=== PATIENT | male | born 1975 | race Caucasian/White ===

== ENCOUNTER 2024-12-24 11:43 | Day surgery (SDC) | payer OTHER ==
[~2024-12-24 11:43] MED LIST: ACETAMINOPHEN325 M1 PO; ADVIL200 MG PO; HYDROCODON-ACE1 EA11 PO; IBLOOD GLUCOSE TEST STRIP 1 EA TEST VI PRN; LACTATED RINGER'S 1,000 ML IV SCH; LIDOCAINE HCL 1% 5 ML SDV INJ ONE; MIDAZOLAM HCL 5 MG/5 ML VIAL IV PRN; fentaNYL citrate 100 MCG/2 ML VIAL IV PRN
[2024-12-24 12:13] VITALS: BP 140/94
[2024-12-24] MEDS ORDERED: MIDAZOLAM HCL 5 MG/5 ML VIAL ONE (12:45)
[2024-12-24] MEDS ORDERED: fentaNYL citrate 100 MCG/2 ML VIAL ONE (12:45)
--- NOTE | 2024-12-24 14:06 | NUR ---
12/24/24 1406 Migdalia Robert 1351- PT PRESENTS TO PACU, LEFT LATERAL POSITION, AWAKE BUT DROWSY. DENIES PAIN OR NAUSEA, ABD SOFT, NON DISTENDED, ENCOURAGED TO PASS GAS. LR INFUSING TO RW. BREATHING EVEN AND NON LABORED, O2 AT 3L PER NC. ALL MONITORS IN PLACE. 1353- PT MOVED TO ROOM AIR. RESTING INTERMITTENTLY. 1400- PT ROLLED TO BACK INDEPENDENTLY, SAT UP IN BED. DENIES PAIN OR NAUSEA. 1402- DR RAYMOND AT BEDSIDE, ICE WATER PROVIDED TOLERATING WELL.
[2024-12-24 14:44] VITALS: BP 135/94
--- NOTE | 2024-12-25 11:56 | OR ---
[facility] [address], [place] [address] Signed DATE OF OPERATION: 12/24/2024 SURGEON: Abel Raymond MD PREOPERATIVE DIAGNOSIS: Colon screening. POSTOPERATIVE DIAGNOSIS: Diminutive polyp of rectum (excised). PROCEDURE: Total colonoscopy to cecum with cold morcellation polypectomy x1. ANESTHESIA: Intravenous sedation, fentanyl 100 mcg and Versed 8 mg. INDICATION: 49-year-old white man, a patient of SUN Ware, is referred for screening colonoscopy. Has no symptoms of bleeding, diarrhea or constipation and no family history of colon cancer. He additionally does have a left inguinal and scrotal hydrocele, for which excision has been offered. He understands the risks of colonoscopy including but not limited to bleeding, infection, and perforation and wished to proceed. FINDINGS: The prep was excellent. Complete colonoscopy was undertaken of the cecum with full intubation of the cecum. He had a very diminutive polyp of the rectum, which was excised completely. The remaining colon was normal. PROCEDURE IN DETAIL: The patient was brought to the endoscopy suite and placed in lateral decubitus position, given intravenous sedation to the point of slurred speech and nystagmus. Digital rectal examination was normal. An Olympus video colonoscope was passed in the rectum and manipulated throughout the colon, ultimately intubating the cecum itself. The ileocecal valve and appendiceal orifice were normal. Scope was withdrawn from that point, and examination throughout showed no sign of abnormality until the rectum where a small polyp was noted, this was excised with cold morcellation technique. Retroflexed view was otherwise normal. Scope was removed, and the patient has recovered, taken to the recovery room in good condition. Electronically Signed By: ABEL RAYMOND MD 12/25/24 1156 PATIENT NAME: MARY JO KING OPERATIVE REPORT DATE OF : 71 REPORT #: [id number] PHYSICIAN: ABEL RAYMOND MD PCP: KEZIA BARRETT PAC REPORT IS CONFIDENTIAL AND NOT TO BE RELEASED WITHOUT AUTHORIZATION [facility] [address], [place] [address] Signed CONCLUDING DIAGNOSIS: Diminutive polyp of rectum. PLAN: Recommend repeat colonoscopy in 10 years, sooner if symptoms should develop. MD QUETA Bland/MODL /[id number] cc: Kezia Barrett PA-C Copies: ~ Electronically Signed By: ABEL RAYMOND MD 12/25/24 1156 PATIENT NAME: MARY JO KING OPERATIVE REPORT DATE OF : 71 REPORT #: [id number] PHYSICIAN: ABEL RAYMOND MD PCP: KEZIA BARRETT PAC REPORT IS CONFIDENTIAL AND NOT TO BE RELEASED WITHOUT AUTHORIZATION
--- NOTE | 2024-12-27 11:51 | PATH ---
[facility] [address] [place], [place] [address] Signed SPECIMEN(S): A RECTAL POLYP SPECIMEN SOURCE: A. RECTAL POLYP CLINICAL HISTORY: Colon screening FINAL PATHOLOGIC DIAGNOSIS: Colon, rectal polyp, biopsy: - Hyperplastic polyp. - Negative for dysplasia and malignancy. SDL MICROSCOPIC EXAMINATION: Histologic sections of all submitted blocks are examined by light microscopy. These findings, together with the gross examination, support the pathologic diagnosis. GROSS DESCRIPTION: The specimen, labeled and designated "Diallo, rectal polyp," is received in formalin and consists of one owens soft tissue fragment, 0.2 cm. Entirely submitted in (A1). VB (under the direct supervision of a pathologist) The Gross Description was prepared using a voice recognition system. The report was reviewed for accuracy; however, sound-alike word errors, addition and/or deletions may occur. If there are any questions about this report, please contact Client Services. ADDITIONAL NOTES: Immunohistochemical and/or in situ hybridization studies if performed in this case included appropriate positive controls that reacted as expected. This test was developed and its performance characteristics determined by [facility]. It has not been cleared or approved by the U.S. Food and Drug Administration. The FDA has determined that such clearance or approval is not necessary. This test is used for clinical purposes. It should not be regarded as investigational or for research. [facility] is certified under the Clinical Laboratory Improvement Amendments of 1988 (CLIA) as qualified to perform high complexity clinical laboratory testing. PATIENT NAME: MARY JO KING PATHOLOGY DATE OF : 71 REPORT #: [id number] PHYSICIAN: SHRUTI LINARES PCP: KEZIA BARRETT PAC REPORT IS CONFIDENTIAL AND NOT TO BE RELEASED WITHOUT AUTHORIZATION [address] [address] Signed PERFORMING LABORATORY: Technical component was performed by [facility], [address] [place] [id number] (CLIA# [id number]). Professional interpretation was performed by [facility], [address] [place] [id number] (CLIA#: [id number]). Diagnostician: Janessa Holden MD Pathologist Electronically Signed 12/27/2024 Copies: ~ PATIENT NAME: MARY JO KING PATHOLOGY DATE OF : 71 REPORT #: [id number] PHYSICIAN: SHRUTI LINARES PCP: KEZIA BARRETT PAC REPORT IS CONFIDENTIAL AND NOT TO BE RELEASED WITHOUT AUTHORIZATION
== END 2024-12-24 14:23 | disposition home or self-care (01) ==
LOC: DS 11:43 → OPS 11:43 → DS 13:00 → OPS 14:23
PROVIDERS: ATTEND Surgery
PROC: 0DBP8ZX Excision of Rectum, Via Natural or Artificial Opening Endoscopic, Diagnostic (ICD-10-PCS; principal; 2024-12-24 13:00)
DX: Z12.11 Encounter for screening for malignant neoplasm of colon (principal); K62.1 Rectal polyp; N43.3 Hydrocele, unspecified
CPT/HCPCS: 99153; G0500; J2250; J3010

== ENCOUNTER 2025-01-29 05:55 | Day surgery (SDC) | payer OTHER ==
[~2025-01-29] VITALS: Ht 190.5 cm; Wt 105.0 kg
[~2025-01-29 05:55] MED LIST changes: -IBLOOD GLUCOSE TEST STRIP 1 EA TEST VI PRN; -LIDOCAINE HCL 1% 5 ML SDV INJ ONE; -MIDAZOLAM HCL 5 MG/5 ML VIAL IV PRN; -fentaNYL citrate 100 MCG/2 ML VIAL IV PRN
[2025-01-29 06:07] VITALS: BP 144/94
[2025-01-29] MEDS ORDERED: CEFAZOLIN SODIUM 2 GM/20 ML SYR IV SCH (07:00)
[2025-01-29] MEDS ORDERED: LIDOCAINE HCL 1% 5 ML SDV INJ ONE (07:00)
[2025-01-29] MEDS ORDERED: HEParin SOD (PORCINE) 5,000 UNIT/ML SDV SUB-Q SCH (07:00)
[2025-01-29] MEDS ORDERED: IBLOOD GLUCOSE TEST STRIP 1 EA TEST VI PRN ×2 (07:00→08:15)
[2025-01-29] MEDS ORDERED: fentaNYL citrate 100 MCG/2 ML VIAL ONE (07:32)
[2025-01-29] MEDS ORDERED: KETOROLAC TROMETHAMINE 30 MG/ML VIAL ONE (07:33)
[2025-01-29] MEDS ORDERED: LIDOCAINE HCL 2% 5 ML SDV ONE (07:33)
[2025-01-29] MEDS ORDERED: DEXAMETHASONE SOD PHOS 4 MG/ML VIAL ONE (07:33)
[2025-01-29] MEDS ORDERED: ACETAMINOPHEN 1,000 MG/100 ML VIAL ONE (07:33)
[2025-01-29] MEDS ORDERED: fentaNYL citrate 50 MCG/ML SDV IV PRN (08:15)
[2025-01-29] MEDS ORDERED: NALOXONE HCL 0.4 MG SYR IV PRN ×2 (08:15→09:15)
--- NOTE | 2025-01-29 09:05 | NUR ---
01/29/25 0905 Catalina Correa 1574 PT ARRIVED TO PACU ON RA, PT WAKES EASILY AND REPORTS NO PAIN OR NAUSEA. PT RESTING AND WAKES OFF AND ON. 0900 PT REPORTS 3/10 TOLERABLE PAIN, PLAN OF CARE DISCSUSED.
[2025-01-29] MEDS ORDERED: OXYCODON-ACETA1 EAC2 PO (09:14)
[2025-01-29] MEDS ORDERED: IBUPROFEN600 MG PO (09:14)
[2025-01-29] MEDS ORDERED: LACTATED RINGER'S 1,000 ML IV SCH (09:15)
[2025-01-29] MEDS ORDERED: OXYCODONE/APAP 7.5/325 TAB PO PRN (09:15)
[2025-01-29] MEDS ORDERED: ACETAMINOPHEN500 MG PO (09:15)
[2025-01-29] MEDS ORDERED: ACETAMINOPHEN 500 MG TAB PO PRN (09:15)
[2025-01-29] MEDS ORDERED: IBUPROFEN 600 MG TAB PO PRN (09:15)
[2025-01-29 09:20] VITALS: BP 140/92
--- NOTE | 2025-01-29 09:20 | NUR ---
PT BACK TO DS FROM PACU VIA STRETCHER. PT IS A&O AND ASKING APPROPRIATE QUESTIONS AT THIS TIME. PT REPORTS PAIN HAS INCREASED TO 7 OR 8/10, WHICH IS NOT TOLERABLE, PRN PAIN MED GIVEN AFTER PT ATE A FEW CRACKERS. REPORT RECEIVED FROM BJORN DELA CRUZ W/ AT BEDSIDE. , PT, PILI RN, AND BJORN DELA CRUZ VISUALIZED WOUND DRESSING. PT REPORTS NO FURTHER QUESTIONS OR NEEDS AT THIS TIME, CALL LIGHT WITHIN REACH.
--- NOTE | 2025-01-29 10:12 | NUR ---
IN PT ROOM FOR PAIN ASSESSMENT. PT STATES PAIN HAS IMPROVED TO 3/10 AND TOLERABLE AT THIS TIME. COFFEE PROVIDED. URINAL PROVIDED. PT STATES NO FURTHER QUESTIONS OR NEEDS AT THIS TIME. PT TO PHARMACY TO DROP OFF PRESCRIPTION. CALL LIGHT WITHIN REACH.
[2025-01-29 10:43] VITALS: BP 140/89
--- NOTE | 2025-01-29 10:45 | NUR ---
IN PT ROOM FOR ASSESSMENT AND VS. PT REPORTS PAIN REMAINS TOLERABLE AT 3/10 AND NO FURTHER NEEDS AT THIS TIME. ICE WATER PROVIDED. PT STATES VERBAL UNDERSTANDING THAT MUST URINATE BEFORE DC. PT DRINKING WATER AND COFFEE. CALL LIGHT WITHIN REACH, PT AT BEDSIDE.
--- NOTE | 2025-01-29 10:57 | NUR ---
ANSWERED PT CALL LIGHT, PT URINE VOID IN URINAL 700 ML CLEAR/YELLOW URINE. PT STATES HE IS READY TO GO HOME, PT IN ROOM TO ASSIST WITH GETTING DRESSED. CALL LIGHT WITHIN REACH.
--- NOTE | 2025-01-29 11:33 | OR ---
[facility] [address] [place], [place] [address] Signed DATE OF OPERATION: 01/29/2025 SURGEON: Abel Raymond MD PREOPERATIVE DIAGNOSIS: Symptomatic left 8.6 cm scrotal hydrocele. POSTOPERATIVE DIAGNOSIS: Symptomatic left 8.6 cm scrotal hydrocele (testicular origin). PROCEDURE: Left trans-inguinal approach, excision of hydrocele of testis. ANESTHESIA: General LMA, Virgilio Mtz, SAP BASIS ARCHITECT and local 10 mL of 0.25% Marcaine with epinephrine. INDICATION: This 49-year-old white man is a patient of Kezia Barrett and was referred with colonoscopy as well as left hemiscrotal mass. The patient had noted a small mass in the left hemiscrotum approximately 10 years ago, which has increased in size over time. It is occasionally particularly painful. This is particularly true with tight closing or squatting or other similar activities. He underwent an ultrasound of the left hemiscrotum and right side as well on November 29, 2024. The right testicle and right hemiscrotum were essentially normal. On the left side, the testicle was 5.2 cm in maximum dimension. The left epididymis was normal, but a cyst was noted superior to the testicle in the area of the cord. Septations were present within the cyst which measured 8.6 cm in maximum dimension. Septations were noted on the left side. There was a 3.7 cm cyst of the right hemiscrotum. There is no solid mass in the testicle or epididymis. Given his symptoms and so forth I have recommended excision. The transscrotal versus trans-inguinal approach has been reviewed with him. The patient understands the risk of the operation including but not limited to bleeding, infection, recurrence, and other unforeseen complications. Understanding this, he wished to proceed. FINDINGS: Delivery of the hydrocele and testicle through the left inguinal approach provided excellent exposure and a transscrotal incision was not required. The hydrocele was densely adherent to the superior pole of the left testicle adjacent but not involving particularly the epidemic epididymis itself. Meticulous care was made in excising the cyst in its entirety from the surrounding soft tissue. Excellent hemostasis was Electronically Signed By: ABEL RAYMOND MD 01/29/25 1133 PATIENT NAME: MARY JO KING OPERATIVE REPORT DATE OF : 71 REPORT #: [id number] PHYSICIAN: ABEL RAYMOND MD PCP: KEZIA BARRETT PAC REPORT IS CONFIDENTIAL AND NOT TO BE RELEASED WITHOUT AUTHORIZATION [facility] [address] [place] [address] Signed maintained. He tolerated the procedure well. DESCRIPTION OF PROCEDURE: The patient was brought to the operating room, given a general LMA type anesthetic. Preoperative antibiotic Ancef was given. Sequential compression device stockings were used. The lower abdomen was clipped and prepared with a Betadine based scrub solution including all of the scrotum. After sterile draping and manipulation of the left hemiscrotum, showed the hydrocele to be larger, not excessively so a transscrotal approach was deemed likely more morbid and therefore a trans-inguinal approach deemed more advisable. A small incision made cephalad to the left pubic tubercle with a 15 blade. Dissection was carried through the subcutaneous tissue with electrocautery. Further dissection down to the external oblique area allowed for various maneuvers to identify a cord structures. He had a rather hypervascular cord from a venous perspective somewhat like, but not entirely a true varicocele. With various manipulations, the cord was encircled, ultimately encircled with a [place] drain as well. With various manipulations, the left hemiscrotal contents were invaginated out of the inguinal incision, delivering the bulky hydrocele into the field of view. A venous vascular network surrounding the area was noted and the membrane beneath it incised allowing for blunt separation of cord venous structures away from the hydrocele itself. Photographs were taken. Meticulous care was made in dissecting free the hydrocele from the cord structures, opening the deep spermatic fascia and identifying the testicle itself and the epididymis. It appeared to be insinuated between the two and the origin of the testicle itself. With various maneuvers, the intact cyst was freed from the surrounding soft tissue. A small leak was noted decreasing the size of the hydrocele of course but maintaining good integrity of the hydrocele membrane itself ultimately fully excising it free from the testicle. Small areas of punctate bleeding were secured with electrocautery. The cord itself had been fully open essentially preserving all vital structures. A small amount of Marika hemostatic agent was applied to the area after hemostasis was assured clinically. The testicle delivered back into the scrotal area. Examination of the cord structure more proximally undertaken. Once hemostasis was assured additional hemostatic agent Marika was applied. Irrigation was undertaken on multiple occasions to be certain of hemostasis. Mateo's layer was reapproximated with interrupted 2-0 Vicryl and skin was closed with running subcuticular 3-0 Vicryl. Steri-Strips were applied as was an Acticoat dressing. Blood loss was quite minimal. Sponge, needle, and instrument counts reported as correct x3. Abel Raymond MD Electronically Signed By: ABEL RAYMOND MD 01/29/25 1133 PATIENT NAME: MARY JO KING OPERATIVE REPORT DATE OF : 71 REPORT #: [id number] PHYSICIAN: ABEL RAYMOND MD PCP: KEZIA BARRETT PAC REPORT IS CONFIDENTIAL AND NOT TO BE RELEASED WITHOUT AUTHORIZATION [address] [place], [place] [address] Signed /HERNAN /[id number] cc: Kezia Barrett PA-C Copies: ~ Electronically Signed By: ABEL RAYMOND MD 01/29/25 1133 PATIENT NAME: MARY JO KING OPERATIVE REPORT DATE OF : 71 REPORT #: [id number] PHYSICIAN: ABEL RAYMOND MD PCP: KEZIA BARRETT PAC REPORT IS CONFIDENTIAL AND NOT TO BE RELEASED WITHOUT AUTHORIZATION
[2025-01-29] MEDS ORDERED: SEVOFLURANE 250 ML BTL INH ONE (14:43)
--- NOTE | 2025-01-31 16:10 | PATH ---
[facility] [address] [facility] [place], [place] [address] Signed SPECIMEN(S): A LEFT TESTICULAR HYDROCELE SPECIMEN SOURCE: A. LEFT TESTICULAR HYDROCELE CLINICAL HISTORY: Left hydrocele. FINAL PATHOLOGIC DIAGNOSIS: Soft tissue from left paratesticular area: - Benign cystic tissue consistent with hydrocele. - No abscess, granuloma, or neoplasm identified. [facility] MICROSCOPIC EXAMINATION: Histologic sections of all submitted blocks are examined by light microscopy. These findings, together with the gross examination, support the pathologic diagnosis. GROSS DESCRIPTION: The specimen, labeled and designated "Quinn Landrum, " and designated on the requisition "left testicular hydrocele," is received in formalin and consists of 4.5 x 3.2 x 0.4 cm pink-white transparent collapsed cystic structure. The specimen is sectioned and entirely submitted in cassette A1. FB (under the direct supervision of a pathologist) The Gross Description was prepared using a voice recognition system. The report was reviewed for accuracy; however, sound-alike word errors, addition and/or deletions may occur. If there is any question about this report, please contact Client Services. ADDITIONAL NOTES: Immunohistochemical and/or in situ hybridization studies if performed in this case included appropriate positive controls that reacted as expected. This test was developed and its performance characteristics determined by [facility]. It has not been cleared or approved by the U.S. Food and Drug Administration. The FDA has determined that such clearance or approval is not necessary. This test is used for clinical purposes. It should not be regarded as investigational or for research. [facility] is certified under the Clinical Laboratory Improvement PATIENT NAME: MARY JO LANDRUM PATHOLOGY DATE OF : 71 REPORT #: [id number] PHYSICIAN: SHRUTI PATHOLOGY PCP: KEZIA BARRETT PAC REPORT IS CONFIDENTIAL AND NOT TO BE RELEASED WITHOUT AUTHORIZATION [address], [place] [address] Signed Amendments of 1988 (CLIA) as qualified to perform high complexity clinical laboratory testing. PERFORMING LABORATORY: Technical component was performed by [facility], [address] [place] [id number] (CLIA# [id number]). Professional interpretation was performed by [facility], [address] [place] [phone] (CLIA#: [id number]). Diagnostician: Lev Giraldo MD Pathologist Electronically Signed 01/31/2025 Copies: ~ PATIENT NAME: MARY JO LANDRUM PATHOLOGY DATE OF : 71 REPORT #: [id number] PHYSICIAN: SHRUTI LINARES PCP: KEZIA BARRETT PAC REPORT IS CONFIDENTIAL AND NOT TO BE RELEASED WITHOUT AUTHORIZATION
== END 2025-01-29 11:15 | disposition home or self-care (01) ==
LOC: DS 05:55
PROVIDERS: ATTEND Surgery
PROC: 0VB70ZZ Excision of Left Tunica Vaginalis, Open Approach (ICD-10-PCS; principal; 2025-01-29 07:30)
DX: N43.3 Hydrocele, unspecified (principal); I10 Essential (primary) hypertension; F17.220 Nicotine dependence, chewing tobacco, uncomplicated
CPT/HCPCS: 00920; 88302; J0131; J0690; J1100; J1644; J1885; J2003; J2405; J2704; J3010; J7121